=== PATIENT | female | born 1940 | race Caucasian/White ===

== ENCOUNTER 2017-03-05 10:26 | Emergency (ER) | payer MEDICARE ==
--- NOTE | 2017-03-05 12:05 | RAD ---
INDICATION: : Numbness at the right upper extremity x3 days. COMPARISON: None. TECHNIQUE: Valles scale, color Doppler, and spectral analysis was performed to evaluate the arteries of the bilateral upper extremities. REPORT: The visualized arteries are patent. The subclavian artery exhibits a flow velocity of only 15 cm/s. This increases slightly at the axillary and brachial arteries to 43 cm/s and 36 cm/s, respectively. The flow velocity in the forearm arteries measures only up to 18 cm/s and at the radial artery and 6 cm/s at the ulnar artery. IMPRESSION: Sonographic findings indicate high-grade stenosis and/or occlusion likely at the brachiocephalic trunk or possibly the proximal most portion of the right subclavian artery. Further characterization with CT angiography of the upper thorax to include the right upper extremity is advised.
[2017-03-05] MEDS ORDERED: Iodixanol* (CONTRAST) 320 MG/ML 100 ML SDV IV ONE (12:44)
[2017-03-05 13:29] LABS: ISTAT Simulator QC CORTCT PASS
[2017-03-05 13:30] LABS: GFR African American CORTCT 69.5 (>60); GFR NON-African American CCT 54.1 (>60); ISTAT Handheld CORTCT 338488; Manual Entry Verification CCT ALOW; POC Bun CORTCT 14 mg/dL (9-18)
--- NOTE | 2017-03-05 13:36 | UC ---
Upper Extremity HPI - HPI Summary HPI Summary: RIGHT ARM PAIN X 3 DAYS SUDDEN ONSET, + NUMBNESS AND TINGLING OF THE RIGHT HAND NO KNOWN INJURY PT. IS A SMOKER - History of Current Complaint Chief Complaint: UCUpperExtremity Stated Complaint: RIGHT HAND/ARM TINGLY/NUMB Time Seen by Provider: 03/05/17 11:01 Hx Obtained From: Patient Onset/Duration: Sudden Onset, Lasting Days - 3, Still Present, Worse Since - PAST 2 DAYS Severity Initially: Mild Severity Currently: Moderate Location Of Pain: Is Discrete @ - RIGHT ARM , RIGHT HAND Character: Aching Aggravating Factor(s): Lifting, Flexion, Extension, Internal/External Rotation Alleviating Factor(s): Nothing Associated Signs And Symptoms: Positive: Weakness, Numbness/Tingling. Negative : Swelling, Redness, Bruising, Fever - Allergies/Home Medications Allergies/Adverse Reactions: Allergies Allergy/AdvReac Type Severity Reaction Status Date / Time No Known Allergies Allergy Verified 03/05/17 10:52 Home Medications: Home Medications Atenolol TAB* [Tenormin TAB* 25 MG] 25 mg PO DAILY 03/05/17 [History Confirmed 03/05/17] Atorvastatin* [Lipitor*] 20 mg PO 1700 03/05/17 [History Confirmed 03/05/17] Irbesartan [Avapro] 300 mg PO DAILY 03/05/17 [History Confirmed 03/05/17] amLODIPine TAB* [Norvasc 5 mg TAB*] 10 mg PO DAILY 03/05/17 [History Confirmed 03/05/17] PMH/Surg Hx/FS Hx/Imm Hx Cardiovascular History: Hypertension, Other - PAD Other Cardiovascular History: PAD - Surgical History Surgical History: Yes Surgery Procedure, Year, and Place: carotid artery end. ganglion cyst left wrist removal. right leg stents - Family History Known Family History: Positive: Hypertension - Social History Alcohol Use: Rare Substance Use Type: None Smoking Status (MU): Light Every Day Tobacco Smoker Amount Used/How Often: 4-5 cigs per day Review of Systems Constitutional: Negative Skin: Negative Eyes: Negative ENT: Negative Respiratory: Negative Cardiovascular: Negative Is Patient Immunocompromised?: No All Other Systems Reviewed And Are Negative: Yes Physical Exam Triage Information Reviewed: Yes Appearance: Well-Appearing, No Pain Distress, Well-Nourished Vital Signs: Initial Vital Signs Temp 96.8 F 03/05/17 10:43 Pulse 81 03/05/17 10:43 Resp 16 03/05/17 10:43 BP 79/62 03/05/17 10:43 Pulse Ox 99 03/05/17 10:43 Vital Signs Reviewed: Yes Eyes: Positive: Conjunctiva Clear ENT: Positive: Normal ENT inspection, Hearing grossly normal, Pharynx normal Neck: Positive: Supple, Nontender, No Lymphadenopathy Respiratory: Positive: Chest non-tender, Lungs clear, Normal breath sounds Cardiovascular: Positive: RRR, No Murmur, Pulses Normal Neurological Exam: Normal UC Physical Exam Vital Signs On Initial Exam: Initial Vitals Temp Pulse Resp BP Pulse Ox 96.8 F 81 16 79/62 99 03/05/17 10:43 03/05/17 10:43 03/05/17 10:43 03/05/17 10:43 03/05/17 10:43 - Cardiovascular Exam Cardiovascular: RRR Pulses: Left Radial - FAINT, Right Radial - FAINT Diagnostics - Laboratory Diagnostic Studies Completed/Ordered: IMPRESSION: Sonographic findings indicate high-grade stenosis and/or occlusion likely at. ARTERIAL US RIGHT ARM : the brachiocephalic trunk or possibly the proximal most portion of the right subclavian. artery. Further characterization with CT angiography of the upper thorax to include the. right upper extremity is advised. Upper Extremity Course/Dx - Course Course Of Treatment: SEVER ARTERIAL STENOSIS BILATERAL UPPER EXT, PT. IS A SMOKER , + LUNGS NODULES, ? LUNG CA. WILL HAVE THE PT. GO TO [facility] ED FOR EVAL BY VASCULAR SURGERY. PT. WILL SIGN AMA , SHE WILL GO HOME FIRST AND WILL GO TO ED LATER TONIGHT. I DID EXPLAIN THE URGENCY OF HER SIGN AND SYMPTOMS. AND SHE COULD LOSE HER LIMBS IF SHE DOESN'T SEE THE VASCULAR SURGERY . - Differential Dx/Diagnosis Provider Diagnoses: SEVER PAD BILATERAL UPPER EXT Discharge - Discharge Plan Condition: Critical Disposition: AGAINST MEDICAL ADVICE Patient Education Materials: Peripheral Artery Disease (ED) Referrals: Madison Humphreys MD [Primary Care Provider] - Additional Instructions: PLEASE GO TO [facility]ICAL ED FOR EVAL AND TX RACHELL IMPRESSION: Sonographic findings indicate high-grade stenosis and/or occlusion likely at the brachiocephalic trunk or possibly the proximal most portion of the right subclavian artery. Further characterization with CT angiography of the upper thorax to include the right upper extremity is advised. SEVER ARTERIAL STENOSIS BILATERAL UPPER EXT, PT. IS A SMOKER , + LUNGS NODULES, ? LUNG CA WILL HAVE THE PT. [facility]GERY PT. WILL SIGN AMA , SHE WILL GO HOME FIRST AND WILL GO TO ED LATER TONIGHT. I DID EXPLAIN THE URGENCY OF HER SIGN AND SYMPTOMS AND SHE COULD LOSE HER LIMBS IF SHE DOESN'T SEE THE VASCULAR SURGERY .
[2017-03-05 14:09] VITALS: BP 97/52
--- NOTE | 2017-03-05 14:25 | RAD ---
INDICATION: Colon is, numbness and right upper extremity pain x3 days COMPARISON: Same day right upper extremity duplex ultrasound demonstrating abnormally low arterial velocities. TECHNIQUE: Axial source images were acquired following the administration of chest and right upper arm intravenously and utilizing CT angiographic technique. Coronal and sagittal reconstructed images were constructed and reviewed. FINDINGS: The thoracic aorta is normal in size and morphology. There is calcified atherosclerosis at the arch of the aorta. There is eccentric mural atherosclerosis at the proximal descending thoracic aorta but luminal patency is maintained. Similar atherosclerotic calcification as well as noncalcified atheroma seen in the upper portion of the abdominal aorta. There is mixed attenuation atherosclerosis causing high-grade stenosis at the origin of the celiac artery. There is at least moderate 50% degree stenosis at the proximal superior mesenteric artery in addition to a small dissection flap (axial image 260). There is mostly noncalcified atheroma occluding the left subclavian artery beginning at the origin and extending at least 4.5 cm (sagittal image 86 of 155). The left vertebral artery is diminutive and the atheroma appears to extend at least to the ostium of the left vertebral artery. More distally the left subclavian artery is diminutive. The left common carotid artery is patent at its proximal portion but becomes mostly occluded with noncalcified atheroma at approximately the C6 vertebral body level (axial image #1). Evaluation of the brachiocephalic artery is limited from streak artifact caused by the neighboring left subclavian vein fill with contrast. There is coarse atherosclerotic calcification but patency appears to be maintained. At the origin of the right subclavian artery (axial image 61 and sagittal image 77) there is coarse atherosclerotic calcification that appears to cause at least high-grade stenosis. More distally at the proximal portion of the subclavian artery there is a 1.6 cm focus of occlusion depicted best on the coronal plane images (image 50 of 101). Distal to this the subclavian artery, axial artery and brachial artery are diminutive but exhibit patency. There there are no filling defects in the pulmonary arteries to indicate acute pulmonary embolic disease. There are diffuse centrilobular emphysematous changes. At the right middle lobe there is an 8 mm pleural-based pulmonary nodule. At the dependent portion of the right lower lobe (axial image 50) there is a 2.5 x 3.1 cm pleural-based density. There are additional small foci of nodular pleural thickening involving mostly the dependent portion of the right lower lobe. In the lateral aspect of the right middle lobe there are faint groundglass nodules (axial image 35) measuring up to 8 mm in greatest dimension. The left lung is largely free of such nodularity. There is a mildly enlarged subcarinal lymph node measuring 2 x 3.3 cm in the axial plane and 3.5 cm in the cephalocaudal projection. Additional mediastinal lymph nodes are identified but none are pathologically enlarged. The heart is normal in size. There is no evidence of pericardial effusion. There is no evidence of aortic aneurysm or dissection. The visualized osseous structures appear normal. At the medial aspect of the right lower lobe there is a 2.6 x 3.9 cm soft tissue lesion. The liver is somewhat heterogeneous in its enhancement. The right kidney is atrophic. IMPRESSION: 1. 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 2. Partially visualized in the left common carotid artery at approximately the C6 level is partially occlusive thrombus. A tube artery appears to be partially occluded at its origin due to thrombus in the subclavian artery. The right vertebral artery is diminutive and questionably occluded at its origin with the subclavian artery. The patient is considered high risk for stroke. More complete characterization could be obtained with ultrasound of the carotid arteries. 3. There are multifocal pleural-based nodules at the right lower lobe, mediastinal lymphadenopathy as well as a suspicious 4 cm lesion in the right lobe of the liver. Suspicion exists for a hypercoagulable state secondary to malignancy. Oncologic workup is advised. 4. Additional chronic and degenerative changes noted in the body the report unlikely to be directly related to the patient's current clinical presentation. Recommendation: As was discussed with Drs. Del Angel over the telephone at approximately 1400 hours, it is advised the patient promptly be seen by an endovascular specialist (e.g. vascular surgery, interventional radiology or interventional cardiology) for potential revascularization and cessation of further emboli. I specifically recommended transfer to [facility] to be evaluated by the vascular surgeon automobile service station manager.
--- OUTSIDE RECORDS SUMMARY | 2017-03-05 17:33 | XMS REPORT ---
:1940 External Reference #:[id number] Author Organization [facility] Address [address] [place] [address] Phone [phone] Care Team Providers Name Role Phone Madison Boswell MD Care Team Information Kiln Firer Unavailable Payers Type Date Identification Numbers Payment Provider Subscriber Medicare Primary Effective: Policy Number: Medicare Mary Tolentino 2014 [id number] PayID: [id number] [address] [place] [address] [facility] Part B Effective: Policy Number: [facility] Mary Tolentino 2014 [id number] Options PayID: [id number] [address] [place] [address] Workers Compensation Onset: 2009 Policy Number: [employer] Mary Tolentino [id number] PayID: [id number] [address] [facility] [place] [address] Problems Date Description Provider Status Onset: 08/05/2012 Chronic kidney disease stage 3 Madison Boswell MD Active Onset: 06/06/2011 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 Onset: 06/06/2011 Abdominal aortic aneurysm without Madison Boswell MD Active rupture Onset: 01/31/2010 Carotid artery occlusion Madison Boswell MD Active Onset: 01/29/2009 Chronic kidney disease stage 2 Madison Boswell MD Active Onset: 01/29/2008 Peripheral vascular disease Madison Boswell MD Active Onset: 12/31/2006 Mixed hyperlipidemia Madison Boswell MD Active Onset: 12/31/2006 Atherosclerosis of renal artery Madison Boswell MD Active Onset: 12/31/2006 Tobacco user Madison Boswell MD Active Onset: 06/21/2006 Benign essential hypertension Madison Boswell MD Active Onset: 02/16/2015 Pure hypercholesterolemia Madison Boswell MD Active Family History Date Family Member(s) Problem(s) Comments Father due to Cancer () - unknown kind. 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 Cigarette Use Current Cigarette Smoker 5-10 Cigarettes Daily Cigarette Use Pack Years - 25 ETOH Use Occasionally consumes alcohol Smoking 08/21/2016 Patient is a current smoker, started age 20, 1/2 ppd, 28 smokes every day pack years as of 08/21/16 Document: 08/21/16 - Followup: Followup 6 mo Allergies, Adverse Reactions, Alerts Date Description Reaction Status Severity Comments 08/13/2014 NKDA active Medications Medication Date Status Form Strength Qnty SIG Indications Ordering Provider Amlodipine 06/19/19 Active Tablets 10mg 1/2 PO qd I10 MD Beth, Besylate 17 Alo Vitamin D3 08/17/19 Active Tablets 1000Unit 2 by E55.9 Juliann, 16 mouth MD Madison daily with dinner with meat fat oil Glucosamine 02/17/20 Active Tablets 1500/1200 OTC 1 by M15.0 Juliann Chondroitin 15 mouth MD Madison Complex Triple twice a Strength day with 16 oz water M79.643 [place] 50 08/06/2013 Active Capsules 1000mg 1 po Juliann, daily MD Madison with food Atorvastatin 08/06/2013 Active Tablets 40mg 90t 1 by E78 Juliann, Calcium abs mouth .2 MD Madison every day Acetaminophen 06/06/2011 Active Tablets 500mg 2 po Juliann, Extra Strength every 12 MD Madison hours prn Aspirin Adult Low 01/29/[address] 81mg 1 by E78 Juliann, Strength mouth .2 MD Madison every day Atenolol 08/18/2007 Active Tablets 25mg 90t 1 by I10 MD Beth, abs mouth Alo every day Irbesartan 07/20/2006 Active Tablets 300mg 1 PO qd I10 MD Beth, Alo Folic Acid Active Tablets 1mg 1 by Unknown mouth every day Ferrous Sulfate Active Tablets 325(65Fe) 1 by Unknown mg mouth every day Sulfamethoxazole/ 08/21/2016 - Hx Tablets 800-160mg 6ta 1 by R35 Juliann, Trimethoprim DS 08/24/2016 bs mouth .0 MD Madison twice a day Cephalexin 07/18/2014 - Hx Capsules 500mg 28c 1 by 682 Unknown 07/25/2014 aps mouth .0 every 6 hours Calcitriol 11/15/2012 - Hx Capsules 0.25mcg 4 po 585 Alo Pate, 08/21/2016 daily .2 Acetaminophen 06/20/2012 - Hx Capsules 500mg 1 po bid Juliann, 02/16/2015 MD Madison Immunizations CPT Code Status Date Vaccine Reaction Lot # [id number] Given 02/22/2016 Prevnar 13 Pneumococal Im inj completed, Pt [id number] Conjugate Vaccine tolerated well 08818 Given 01/03/2016 Influenza Virus Vaccine,Quadrivalent,Split,Pr eserv Free 3 Yrs+ 06685 Given 01/01/2015 Fluzone Highdose Age 65 And Over Preservative & Antibiotic Free 96983 Given 12/31/2013 Influenza Virus Vaccine,Quadrivalent,Split,Pr eserv Free 3 Yrs+ 51436 Given 01/01/2012 Afluria Or Fluvirin Flu Vac Intramuscular 07758 Given 01/05/2010 Tdap (Adacel) Ages 7 And Above Only 61836 Given 01/05/2010 Afluria Or Fluvirin Flu Vac Intramuscular 38071 Given 12/24/2008 Afluria Or Fluvirin Flu Vac Intramuscular 75425 Given 01/29/2008 Pneumococcal 23 Immunization Adult Or Immunosuppressed Patient 45741 Given 01/17/2008 Afluria Or Fluvirin Flu Vac Intramuscular Q2039 Refused 02/26/2017 Flu Vaccine NOS [id number] Refused 02/16/2015 Prevnar 13 Pneumococal Conjugate Vaccine 31373 Refused 08/13/2014 Prevnar 13 Pneumococal Conjugate Vaccine Vital Signs Date Vital Result Comment 02/26/2017 Body Temperature 97.7 F Weight 147.00 lb Heart Rate 82 /min BP Systolic 132 mmHg BP Diastolic 74 mmHg Respiratory Rate 14 /min Height 64.25 inches 5'4.25" O2 % BldC Oximetry 98 % Ra BMI (Body Mass Index) 25.0 kg/m2 08/21/2016 Weight 160.00 lb Heart Rate 74 /min BP Systolic 120 mmHg BP Diastolic 80 mmHg Respiratory Rate 18 /min Height 64.25 inches 5'4.25" BMI (Body Mass Index) 27.2 kg/m2 02/22/2016 Weight 160.12 lb Heart Rate 84 /min BP Systolic 128 mmHg BP Diastolic 70 mmHg Respiratory Rate 16 /min Height 64.25 inches 5'4.25" 02/02/16 SA BMI (Body Mass Index) 27.3 kg/m2 08/17/2015 Weight 161.00 lb Heart Rate 70 /min BP Systolic 108 mmHg LEFT Reg BP Diastolic 62 mmHg LEFT Reg Respiratory Rate 19 /min Height 64.5 inches 5'4.50" BMI (Body Mass Index) 27.2 kg/m2 02/16/2015 Weight 160.00 lb Heart Rate 74 /min BP Systolic 120 mmHg BP Diastolic 70 mmHg Respiratory Rate 18 /min Height 64.5 inches 5'4.50" BMI (Body Mass Index) 27.0 kg/m2 08/13/2014 Weight 153.00 lb Heart Rate 72 /min BP Systolic 130 mmHg BP Diastolic 80 mmHg Respiratory Rate 18 /min Height 64.5 inches 5'4.50" BMI (Body Mass Index) 25.9 kg/m2 07/27/2014 Weight 152.00 lb Heart Rate 72 /min BP Systolic 120 mmHg BP Diastolic 74 mmHg Respiratory Rate 18 /min Height 64.5 inches 5'4.50" BMI (Body Mass Index) 25.7 kg/m2 07/20/2014 Body Temperature 96.2 F Weight 152.00 lb Heart Rate 74 /min BP Systolic 112 mmHg BP Diastolic 70 mmHg Respiratory Rate 18 /min Height 64.5 inches 5'4.50" BMI (Body Mass Index) 25.7 kg/m2 02/09/2014 Weight 156.00 lb Heart Rate 72 /min BP Systolic 120 mmHg BP Diastolic 80 mmHg Respiratory Rate 18 /min Height 64.5 inches 5'4.50" 12/04/2013 Weight 149.00 lb Heart Rate 74 /min BP Systolic 124 mmHg BP Diastolic 76 mmHg Respiratory Rate 18 /min Height 64.5 inches 5'4.50" O2 % BldC Oximetry 97 % room air 09/17/2013 Weight 151.00 lb Heart Rate 72 /min BP Systolic 124 mmHg BP Diastolic 72 mmHg Respiratory Rate 18 /min Height 64.5 inches 5'4.50" 08/06/2013 Weight 153.00 lb Heart Rate 74 /min BP Systolic 120 mmHg BP Diastolic 72 mmHg Respiratory Rate 18 /min Height 64.5 inches 5'4.50" 05/28/2013 Weight 155.00 lb Heart Rate 76 /min BP Systolic 122 mmHg BP Diastolic 70 mmHg Respiratory Rate 18 /min Height 64.5 inches 5'4.50" 03/31/2013 Weight 158.00 lb Heart Rate 74 /min BP Systolic 124 mmHg BP Diastolic 78 mmHg Respiratory Rate 18 /min 03/06/2013 Weight 156.00 lb Heart Rate 76 /min BP Systolic 130 mmHg BP Diastolic 80 mmHg Respiratory Rate 18 /min 02/19/2013 Weight 158.00 lb Heart Rate 76 /min BP Systolic 114 mmHg BP Diastolic 76 mmHg Respiratory Rate 18 /min 02/05/2013 Weight 158.50 lb Heart Rate 78 /min BP Systolic 130 mmHg BP Diastolic 80 mmHg Respiratory Rate 18 /min Height 64.5 inches 5'4.50" 10/07/2012 Body Temperature 97.0 F Weight 153.00 lb Heart Rate 72 /min BP Systolic 100 mmHg BP Diastolic 60 mmHg Respiratory Rate 20 /min O2 % BldC Oximetry 95 % 08/05/2012 Weight 157.00 lb Heart Rate 72 /min BP Systolic 122 mmHg BP Diastolic 62 mmHg Respiratory Rate 18 /min 06/20/2012 Weight 157.00 lb Heart Rate 78 /min BP Systolic 118 mmHg BP Diastolic 70 mmHg Respiratory Rate 18 /min 02/05/2012 Weight 156.00 lb Heart Rate 80 /min BP Systolic 136 mmHg BP Diastolic 60 mmHg Respiratory Rate 17 /min Height 64.5 inches 5'4.50" 02/05/12 10/16/2011 Weight 161.00 lb Heart Rate 76 /min BP Systolic 110 mmHg BP Diastolic 68 mmHg Respiratory Rate 17 /min 06/06/2011 Weight 158.00 lb Heart Rate 84 /min BP Systolic 112 mmHg BP Diastolic 70 mmHg Respiratory Rate 19 /min Height 64.5 inches 5'4.50" 04/17/11 04/17/2011 Weight 156.00 lb Heart Rate 70 /min BP Systolic 124 mmHg BP Diastolic 78 mmHg Respiratory Rate 17 /min Height 64.5 inches 5'4.50" 02/20/2011 Weight 164.00 lb Heart Rate 72 /min BP Systolic 124 mmHg BP Diastolic 76 mmHg Respiratory Rate 18 /min Height 64.5 inches 5'4.50" 02/01/2011 Weight 157.00 lb Heart Rate 66 /min BP Systolic 126 mmHg BP Diastolic 78 mmHg Respiratory Rate 16 /min Height 64.5 inches 5'4.50" 01/31/2010 Weight 153.00 lb Heart Rate 72 /min BP Systolic 130 mmHg LEFT BP Diastolic 72 mmHg LEFT Respiratory Rate 16 /min Height 64.5 inches 5'4.50" 01/12/2010 Body Temperature 96.0 F Weight 153.00 lb Heart Rate 72 /min BP Systolic 112 mmHg LEFT BP Diastolic 68 mmHg LEFT Respiratory Rate 16 /min 01/05/2010 Weight 154.00 lb Heart Rate 68 /min BP Systolic 122 mmHg LEFT BP Diastolic 72 mmHg LEFT Respiratory Rate 16 /min 12/29/2009 Weight 153.00 lb Heart Rate 72 /min BP Systolic 112 mmHg LEFT BP Diastolic 62 mmHg LEFT Respiratory Rate 16 /min 01/29/2009 Weight 149.00 lb Heart Rate 74 /min BP Systolic 130 mmHg BP Diastolic 70 mmHg Respiratory Rate 16 /min Height 65 inches 5'5" 01/29/2008 Weight 149.00 lb Heart Rate 78 /min BP Systolic 128 mmHg BP Diastolic 70 mmHg Respiratory Rate 16 /min Height 65 inches 5'5" 02/15/2007 Weight 144.00 lb Heart Rate 66 /min BP Systolic 120 mmHg BP Diastolic 70 mmHg Respiratory Rate 18 /min Height 65 inches 5'5" 01/28/2007 Weight 154.00 lb Heart Rate 74 /min BP Systolic 140 mmHg BP Diastolic 80 mmHg Respiratory Rate 18 /min Height 65 inches 5'5" 12/31/2006 Weight 155.00 lb Heart Rate 68 /min BP Systolic 122 mmHg BP Diastolic 70 mmHg Respiratory Rate 20 /min Height 65 inches 5'5" 07/03/2006 Weight 139.00 lb Heart Rate 60 /min BP Systolic 154 mmHg BP Diastolic 80 mmHg Respiratory Rate 20 /min Height 65 inches 5'5" 06/26/2006 BP Systolic 190 mmHg pt anxious BP Diastolic 100 mmHg pt anxious 06/26/2006 Body Temperature 97.5 F Weight 146.00 lb Heart Rate 72 /min BP Systolic 162 mmHg BP Diastolic 110 mmHg Respiratory Rate 20 /min Height 65 inches 5'5" O2 % BldC Oximetry 97 % 06/21/2006 Body Temperature 95.5 F Weight 138.00 lb Heart Rate 68 /min BP Systolic 194 mmHg Both Arms Same Reading BP Diastolic 80 mmHg Both Arms Same Reading Respiratory Rate 20 /min Height 65 inches 5'5" Results Test Date Test Result H/L Range Note Xray 02/26/2017 Ribs, Unilateral - 2 Views, RT <pending> Spine, Thoracic, 3 Views <pending> CBC With Auto Diff 02/19/2017 WBC 11.5 K/uL High 4.1-11.0 RBC 5.22 M/uL 4.00-5.40 Hemoglobin 13.1 gm/dL 12.0-16.0 Hematocrit 40.0 % 36.0-47.0 MCV 76.7 fL Low 80.0-97.0 MCH 25.2 pg Low 27.0-32.0 MCHC 32.8 g/dL 32.0-36.0 RDW 16.5 % High 11.5-14.5 PLT Count 287 K/ul 140-400 MPV 8.4 FL 7.1-10.7 Neutrophil 62.0 % 35.0-75.0 Lymphocyte 24.0 % 16.0-52.0 Monocyte 11.6 % High 2.0-10.0 Eosinophil 1.5 % 0.0-5.0 Basophil 0.9 % 0.0-4.0 Abs Neutrophils 7.2 K/uL 2.1-8.0 Abs Lymphocytes 2.8 K/uL 0.8-5.5 Abs Monocytes 1.3 K/uL High 0.1-1.0 Abs Eosinophils 0.2 K/uL 0.0-0.5 Abs Basophils 0.1 K/uL 0.0-0.3 Comprehensive Metabolic (CMP) 02/19/2017 Sodium 140 mmol/L 135-146 1 Potassium 4.0 mmol/L 3.5-5.2 Chloride# 105 mmol/L 97-110 2 Carbon Dioxide 22 mmol/L Low 24-34 Glucose 113 mg/dL High 70-105 Creatinine 1.2 mg/dL 0.5-1.4 Calcium 9.5 mg/dL 8.5-10.2 Total Protein 7.1 g/dL 6.0-8.0 Albumin 3.7 g/dL 3.6-4.9 Globulin 3.4 g/dL 2.0-3.5 A/G Ratio 1.1 Ratio 1.0-2.2 Total Bilirubin 0.4 mg/dL 0.1-1.3 Alkaline Phosphatase 121 U/L 24-140 Alt 8 U/L 3-42 Ast 13 U/L 8-42 Ayse Egfr 54 Low >60 3 Non Ayse Egfr 45 Low >60 4 Anion Gap 13 mmol/L 7-16 5 BUN 15 mg/dL 6-26 Lipid 02/19/2017 Cholesterol 100 mg/dL 50-199 Triglycerides 90 mg/dL 30-200 HDL 30 mg/dL Low 35-85 6 Chol/ HDL Ratio 3.3 ratio Low 3.7-5.6 VLDL 18 mg/dL 2-29 LDL (Calc) 52 mg/dL 20-99 7 Laboratory test finding 02/19/2017 CPK 21 U/L 12-199 Microalb/Creat Panel 02/19/2017 Creatinine, Urine 144.3 mg/dL Microalb/Creat Urine 533.51 ug/mgCreat High 0.00-30.00 Microalbumin 769.8 ug/ml High 0.0-20.0 Laboratory test 08/21/2016 Urine Culture Microbiology res 8, 9 finding <SEE NOTE> Laboratory test 08/14/2016 Vit D,25 Hydroxy 25 ng/mL Low 31-100 finding Lipid 08/14/2016 Cholesterol 123 mg/dL 50-199 Triglycerides 143 mg/dL 30-200 HDL 35 mg/dL 35-85 10 Chol/ HDL Ratio 3.6 ratio Low 3.7-5.6 VLDL 29 mg/dL 2-29 LDL (Calc) 60 mg/dL 20-99 11 Laboratory test finding 08/14/2016 CPK 35 U/L 12-199 Comprehensive Metabolic (CMP) 08/14/2016 Sodium 141 mmol/L 135-146 12 Potassium 4.9 mmol/L 3.5-5.2 Chloride# 107 mmol/L 97-110 13 Carbon Dioxide 23 mmol/L Low 24-34 Glucose 109 mg/dL High 70-105 BUN 17 mg/dL 6-26 Creatinine 1.2 mg/dL 0.5-1.4 Calcium 9.8 mg/dL 8.5-10.2 Total Protein 7.2 g/dL 6.0-8.0 Albumin 4.1 g/dL 3.6-4.9 Globulin 3.1 g/dL 2.0-3.5 A/G Ratio 1.3 Ratio 1.0-2.2 Total Bilirubin 0.5 mg/dL 0.1-1.3 Alkaline Phosphatase 115 U/L 24-140 Alt 13 U/L 3-42 Ast 17 U/L 8-42 Ayse Egfr 52 Low >60 14 Non Ayse Egfr 43 Low >60 15 Anion Gap 16 mmol/L 7-16 16 Microalb/Creat Panel 08/14/2016 Creatinine, Urine 122.8 mg/dL Microalb/Creat Urine 533.38 ug/mgCreat High 0.00-30.00 Microalbumin 655.2 ug/ml High 0.0-20.0 Laboratory test finding 02/15/2016 Vit D,25 Hydroxy 22 ng/mL Low 31-100 Lipid 02/15/2016 Cholesterol 136 mg/dL 50-199 Triglycerides 147 mg/dL 30-200 HDL 32 mg/dL Low 35-85 17 Chol/ HDL Ratio 4.3 ratio 3.7-5.6 VLDL 29 mg/dL 2-29 LDL (Calc) 75 mg/dL 20-99 18 Laboratory test finding 02/15/2016 CPK 37 U/L 12-199 Comprehensive Metabolic (CMP) 02/15/2016 Sodium 137 mmol/L 134-142 Potassium 4.4 mmol/L 3.5-5.2 Chloride 106 mmol/L 97-109 Carbon Dioxide 23 mmol/L Low 24-34 Glucose 115 mg/dL High 70-105 BUN 22 mg/dL 6-26 Creatinine 1.4 mg/dL 0.5-1.4 Calcium 9.8 mg/dL 8.5-10.2 Total Protein 7.5 g/dL 6.0-8.0 Albumin 4.2 g/dL 3.6-4.9 Globulin 3.3 g/dL 2.0-3.5 A/G Ratio 1.3 Ratio 1.0-2.2 Total Bilirubin 0.3 mg/dL 0.1-1.3 Alkaline Phosphatase 92 U/L 24-140 Alt 14 U/L 3-42 Ast 16 U/L 8-42 Anion Gap 12 mmol/L 6-14 Ayse Egfr 45 Low >60 19 Non Ayse Egfr 37 Low >60 20 CBC With Auto Diff 02/15/2016 WBC 8.4 K/uL 4.1-11.0 RBC 5.13 M/uL 4.00-5.40 Hemoglobin 13.6 gm/dL 12.0-16.0 Hematocrit 40.7 % 36.0-47.0 MCV 79.3 fL Low 80.0-97.0 MCH 26.6 pg Low 27.0-32.0 MCHC 33.5 g/dL 32.0-36.0 RDW 15.8 % High 11.5-14.5 PLT Count 224 K/ul 140-400 Neutrophil 57.5 % 35.0-75.0 Lymphocyte 28.5 % 16.0-52.0 Monocyte 9.7 % 2.0-10.0 Eosinophil 3.0 % 0.0-5.0 Basophil 1.3 % 0.0-4.0 Abs Neutrophils 4.8 K/uL 2.1-8.0 Abs Lymphocytes 2.4 K/uL 0.8-5.5 Abs Monocytes 0.8 K/uL 0.1-1.0 Abs Eosinophils 0.2 K/uL 0.0-0.5 Abs Basophils 0.1 K/uL 0.0-0.3 Microalb/Creat Panel 02/15/2016 Creatinine, Urine 159.2 mg/dL Microalb/Creat Urine 101.92 ug/mgCreat High 0.00-30.00 Microalbumin 162.3 ug/ml High 0.0-20.0 Laboratory test finding 08/10/2015 Vit D,25 Hydroxy 24 ng/mL Low 31-100 21 Lipid 08/10/2015 Cholesterol 125 mg/dL 50-199 21 Triglycerides 142 mg/dL 30-200 21 HDL 33 mg/dL Low 35-85 21, 22 Chol/ HDL Ratio 3.8 ratio 3.7-5.6 21 VLDL 28 mg/dL 2-29 21 LDL (Calc) 64 mg/dL 20-99 21, 23 Laboratory test finding 08/10/2015 CPK 35 U/L 12-199 21 Comprehensive Metabolic (CMP) 08/10/2015 Sodium 139 mmol/L 134-142 21 Potassium 4.2 mmol/L 3.5-5.2 21 Chloride 108 mmol/L 97-109 21 Carbon Dioxide 24 mmol/L 24-34 21 Glucose 99 mg/dL 70-105 21 BUN 18 mg/dL 6-26 21 Creatinine 1.4 mg/dL 0.5-1.4 21 Calcium 9.6 mg/dL 8.5-10.2 21 Total Protein 7.1 g/dL 6.0-8.0 21 Albumin 3.8 g/dL 3.6-4.9 21 Globulin 3.3 g/dL 2.0-3.5 21 A/G Ratio 1.2 Ratio 1.0-2.2 21 Total Bilirubin 0.3 mg/dL 0.1-1.3 21 Alkaline Phosphatase 89 U/L 24-140 21 Alt 12 U/L 3-42 21 Ast 16 U/L 8-42 21 Anion Gap 11 mmol/L 6-14 21 Ayse Egfr 45 Low >60 21, 24 Non Ayse Egfr 37 Low >60 21, 25 Laboratory test finding 02/09/2015 Vit D,25 Hydroxy 34 ng/mL 31-100 26 CBC With Auto Diff 02/09/2015 WBC 7.6 K/uL 4.1-11.0 26 RBC 5.22 M/uL 4.00-5.40 26 Hemoglobin 14.0 gm/dL 12.0-16.0 26 Hematocrit 42.9 % 36.0-47.0 26 MCV 82.2 fL 80.0-97.0 26 MCH 26.9 pg Low 27.0-32.0 26 MCHC 32.7 g/dL 32.0-36.0 26 RDW 15.4 % High 11.5-14.5 26 PLT Count 232 K/ul 140-400 26 Neutrophil 63.4 % 35.0-75.0 26 Lymphocyte 23.0 % 16.0-52.0 26 Monocyte 8.9 % 2.0-10.0 26 Eosinophil 3.5 % 0.0-5.0 26 Basophil 1.2 % 0.0-4.0 26 Abs Neutrophils 4.8 K/uL 2.1-8.0 26 Abs Lymphocytes 1.7 K/uL 0.8-5.5 26 Abmon 0.7 K/uL 0.1-1.0 26 Abs Eosinophils 0.3 K/uL 0.0-0.5 26 Abs Basophils 0.1 K/uL 0.0-0.3 26 Lipid 02/09/2015 Cholesterol 132 mg/dL 50-199 26 Triglycerides 140 mg/dL 30-200 26 HDL 36 mg/dL 35-85 26, 27 Chol/ HDL Ratio 3.7 ratio 3.7-5.6 26 VLDL 28 mg/dL 2-29 26 LDL (Calc) 68 mg/dL 20-99 26, 28 Laboratory test finding 02/09/2015 CPK 46 U/L 12-199 26 Microalb/Creat Panel 02/09/2015 Creatinine, Urine 128.0 mg/dL 26 Microalb/Creat Urine 88.78 ug/mgCreat High 0.00-30.00 26 Microalbumin 113.6 ug/ml High 0.0-20.0 26 Lipid Treatment 08/06/2014 Cholesterol 116 mg/dL 50-199 29 Triglycerides 67 mg/dL 30-200 29 HDL 38 mg/dL 35-85 29, 30 Chol/ HDL Ratio 3.1 ratio Low 3.7-5.6 29 VLDL 13 mg/dL 2-29 29 LDL (Calc) 65 mg/dL 20-99 29, 31 Alt 13 U/L 3-42 29 Ast 18 U/L 8-42 29 Basic (BMP) 08/06/2014 Sodium 139 mmol/L 134-142 29 Potassium 4.4 mmol/L 3.5-5.2 29 Chloride 107 mmol/L 97-109 29 Carbon Dioxide 26 mmol/L 24-34 29 Glucose 113 mg/dL High 70-105 29 BUN 23 mg/dL 6-26 29 Creatinine 1.4 mg/dL 0.5-1.4 29 Calcium 9.8 mg/dL 8.5-10.2 29 Anion Gap 10 mmol/L 6-14 29 Non Ayse Egfr 38 Low >60 29, 32 Ayse Egfr 45 Low >60 29, 33 Laboratory test finding 08/06/2014 Vit D,25 Hydroxy 36 ng/mL 31-100 29 Comprehensive Metabolic Panel 07/18/2014 Glucose 104 mg/dL 74-106 BUN 15 mg/dL 7-18 Creatinine 1.3 mg/dL 0.6-1.3 Glom Filtration Rate, Estimate 43 mL/min >60 If 52 mL/min >60 34 BUN/Creat 11.5 ratio Sodium 136 mmol/L 136-145 Potassium 4.5 mmol/L 3.5-5.1 Chloride 103 mmol/L 98-107 Carbon Dioxide 26 mmol/L 21-32 Anion Gap 7 mEq/L Low 8-16 Calcium 9.7 mg/dL 8.5-10.1 Total Protein 8.3 g/dL High 6.4-8.2 Albumin 3.9 g/dL 3.4-5.0 Globulin 4.4 g/dL High 1.9-4.3 Alb/Glob 0.9 ratio Bilirubin,Total 0.6 mg/dL 0.2-1.0 Sgot/Ast 27 U/L 15-37 SGPT/Alt 19 U/L 12-78 Alkaline Phosphatase 114 U/L 45-117 CBC 07/18/2014 White Blood Count 9.8 K/uL 3.1-10.7 Red Blood Count 5.43 M/uL High 3.90-5.40 Hemoglobin 15.0 gm/dL 11.6-15.8 Hematocrit 45.0 % 36.0-46.1 Mean Cell Volume 82.9 fl 80.9-99.0 Mean Corpuscular HGB 27.6 pg 25.9-32.7 Mean Corpuscular HGB Conc 33.3 g/dL 30.8-34.3 Platelet Count 217 K/uL 155-360 Red Cell Distri Width %CV 14.5 % High 11.7-14.4 Mean Platelet Volume 10.9 fL 8.9-12.4 Laboratory test finding 02/02/2014 % Baso. 2.1 % High 0.0-2.0 % Eos. 4.5 % High 0.0-4.0 % Lymph 31 % 20-44 % [place] 9.8 % 2.0-10.0 % Meg 53 % 50-70 Absolute Baso. 0.1 K/ul 0.0-0.3 Absolute Eos. 0.3 K/ul 0.0-0.5 Absolute Lymph. 2.2 K/ul 0.8-4.8 Absolute [place]. 0.7 K/ul 0.1-1.0 Absolute Meg. 3.75 K/ul 2.05-7.63 Alt 11.0 U/L 9.0-52.0 Ast 21.0 U/L 14.0-36.0 BUN 17.0 mg/dL 7.0-18.0 BUN/Creat Ratio 13.1 ratio 12.0-20.0 Calcium 10.2 mg/dL 8.7-10.5 Chloride 108.0 mmol/L High 98.0-107.0 Co2 22.0 mmol/L 22.0-30.0 Creatinine-Serum 1.3 mg/dL High 0.7-1.2 Glucose 102.0 mg/dL 75.0-110.0 HCT 47.6 % 37.0-51.0 HGB 16.1 Gm/dl High 12.0-16.0 MCH 28.7 pg 26.0-32.0 MCHC 33.9 g/dL 31.0-36.0 MCV 84.6 Fl 80.0-97.0 MPV 8.1 fL 6.0-10.0 PLT 239 K/ul 140-440 Potasium 4.6 mmol/L 3.6-5.0 RBC 5.6 M/ul 4.2-6.3 RDW 13.1 % 11.5-14.5 Sodium 141.0 mmil/L 137.0-145.0 Vitamin D 28.3 ng/mL Low 30.0-100.0 WBC 7.1 K/ul 4.1-10.9 eGFR 42.9 Lipid Panel 02/02/2014 Chol/HDL Ratio 3.8 ratio Cholesterol 144.0 mg/dL 50.0-199.0 HDL 38.0 mg/dL 29.0-86.0 LDL, Calculated 76.6 mg/dL 20.0-129.0 Triglycerides 147.0 mg/dL 30.0-249.0 vLDL 29.4 ng/dL Urine Microalbumin/Creat 02/02/2014 Microalb/Creat Ratio 99.7 ug/ngcrt High 0.0-30.0 Urine Creatinine 151.1 mg/dL Urine Microalbumin 150.7 mg/L High <18.5 Laboratory test finding 12/04/2013 % Baso. 0.8 % 0.0-2.0 % Eos. 3.1 % 0.0-4.0 % Lymph 25 % 20-44 % [place] 8.0 % 2.0-10.0 % Meg 63 % 50-70 A/G Ratio 1.2 ratio Low 1.6-2.2 Absolute Baso. 0.1 K/ul 0.0-0.3 Absolute Eos. 0.3 K/ul 0.0-0.5 Absolute Lymph. 2.0 K/ul 0.8-4.8 Absolute [place]. 0.6 K/ul 0.1-1.0 Absolute Meg. 5.08 K/ul 2.05-7.63 Albumin 4.3 g/dL 3.5-5.0 Alk. Phos. 86.0 U/L 30.0-126.0 Alt 14.0 U/L 9.0-52.0 Anion Gap 12.0 mmol/L 10.0-20.0 Ast 23.0 U/L 14.0-36.0 BUN 17.0 mg/dL 7.0-18.0 BUN/Creat Ratio 13.1 ratio 12.0-20.0 Calcium 9.8 mg/dL 8.7-10.5 Chloride 108.0 mmol/L High 98.0-107.0 Co2 19.0 mmol/L Low 22.0-30.0 Creatinine-Serum 1.3 mg/dL High 0.7-1.2 Globulin 3.6 g/dL 2.7-4.3 Glucose 102.0 mg/dL 75.0-110.0 HCT 44.0 % 37.0-51.0 HGB 14.5 Gm/dl 12.0-16.0 MCH 28.4 pg 26.0-32.0 MCHC 32.9 g/dL 31.0-36.0 MCV 86.2 Fl 80.0-97.0 MPV 7.4 fL 6.0-10.0 PLT 238 K/ul 140-440 Potasium 4.9 mmol/L 3.6-5.0 RBC 5.1 M/ul 4.2-6.3 RDW 12.6 % 11.5-14.5 Sodium 139.0 mmil/L 137.0-145.0 Total Bilirubin 0.4 mg/dL 0.2-1.3 Total Protein 7.9 g/dL 6.3-8.2 WBC 8.1 K/ul 4.1-10.9 eGFR 46.2 mi/minper1.73 35 Act Partial Thrombo Time 27.3 s 23.9-34.3 36 Protime 12/04/2013 Inr 0.9 0.9-1.1 37 Protime 12.3 s 12.1-14.9 Laboratory test finding 09/10/2013 Alt 15.0 U/L 9.0-52.0 Ast 23.0 U/L 14.0-36.0 ck 50.0 26.0-190.0 Lipid Panel 09/10/2013 Chol/HDL Ratio 3.8 ratio Cholesterol 128.0 mg/dL 50.0-199.0 HDL 34.0 mg/dL 29.0-86.0 LDL, Calculated 76.0 mg/dL 20.0-129.0 Triglycerides 90.0 mg/dL 30.0-249.0 vLDL 18.0 ng/dL Laboratory test finding 07/31/2013 % Baso. 1.3 % 0.0-2.0 % Eos. 3.1 % 0.0-4.0 % Lymph 23 % 20-44 % [place] 10.4 % High 2.0-10.0 % Meg 62 % 50-70 Absolute Baso. 0.1 K/ul 0.0-0.3 Absolute Eos. 0.3 K/ul 0.0-0.5 Absolute Lymph. 2.0 K/ul 0.8-4.8 Absolute [place]. 0.9 K/ul 0.1-1.0 Absolute Meg. 5.23 K/ul 2.05-7.63 Alt 16.0 U/L 9.0-52.0 Ast 19.0 U/L 14.0-36.0 BUN 22.0 mg/dL High 7.0-18.0 BUN/Creat Ratio 15.7 ratio 12.0-20.0 Calcium 9.6 mg/dL 8.7-10.5 Chloride 108.0 mmol/L High 98.0-107.0 Co2 22.0 mmol/L 22.0-30.0 Creatinine-Serum 1.4 mg/dL High 0.7-1.2 Glucose 104.0 mg/dL 75.0-110.0 HCT 44.7 % 37.0-51.0 HGB 14.8 Gm/dl 12.0-16.0 MCH 28.7 pg 26.0-32.0 MCHC 33.2 g/dL 31.0-36.0 MCV 86.4 Fl 80.0-97.0 MPV 7.0 fL 6.0-10.0 PLT 244 K/ul 140-440 Potasium 4.6 mmol/L 3.6-5.0 RBC 5.2 M/ul 4.2-6.3 RDW 14.3 % 11.5-14.5 Sodium 141.0 mmil/L 137.0-145.0 Vitamin D 24.2 ng/mL Low 30.0-100.0 WBC 8.5 K/ul 4.1-10.9 eGFR 39.4 Lipid Panel 07/31/2013 Chol/HDL Ratio 4.4 ratio Cholesterol 151.0 mg/dL 50.0-199.0 HDL 34.0 mg/dL 29.0-86.0 LDL, Calculated 86.0 mg/dL 20.0-129.0 Triglycerides 155.0 mg/dL 30.0-249.0 vLDL 31.0 ng/dL Laboratory test finding 07/31/2013 Ferritin 42.9 ng/mL 3-105 38 Serum Iron 72 g/dL 25-156 39 Laboratory test finding 05/21/2013 Bas% 0.6 % 0.0-1.1 Baso # 0.05 K/uL 0.0-0.1 Eo% 2.2 % 0.0-6.6 Eos # 0.18 K/uL 0.0-0.5 Ferritin 19.6 ng/mL 3-105 40 Folic Acid 62.4 ng/mL High 6.0-15.4 41 Hematocrit 40.1 % 36.0-46.1 Hemoglobin 13.1 gm/dL 11.6-15.8 Lymph # 2.88 K/uL 0.8-3.4 Lymph % 35.9 % 17.0-46.1 Mean Cell Volume 81.8 fl 80.9-99.0 Mean Corpuscular HGB 26.7 pg 25.9-32.7 Mean Corpuscular HGB Conc 32.7 g/dL 30.8-34.3 Mean Platelet Volume 10.8 fL 8.9-12.4 [place] # 1.12 K/uL High 0.3-0.9 [place] % 14.0 % High 4.3-13.2 Neut# 3.79 K/uL 1.0-7.0 Neut% 47.3 % 40.4-72.8 Platelet Count 211 K/uL 155-360 Red Blood Count 4.90 M/uL 3.90-5.40 Red Cell Distri Width %CV 21.9 % High 11.7-14.4 Red Cell Distri Width SD 63.9 fl High 3-47 Serum Iron 35 g/dL 25-156 42 White Blood Count 8.0 K/uL 3.1-10.7 Laboratory test finding 03/21/2013 Bas% 0.9 % 0.0-1.1 Baso # 0.06 K/uL 0.0-0.1 Eo% 3.8 % 0.0-6.6 Eos # 0.25 K/uL 0.0-0.5 Hematocrit 37.9 % 36.0-46.1 Hemoglobin 11.9 gm/dL 11.6-15.8 Lymph # 2.65 K/uL 0.8-3.4 Lymph % 40.5 % 17.0-46.1 Mean Cell Volume 76.7 fl Low 80.9-99.0 Mean Corpuscular HGB 24.1 pg Low 25.9-32.7 Mean Corpuscular HGB Conc 31.4 g/dL 30.8-34.3 Mean Platelet Volume 10.6 fL 8.9-12.4 [place] # 0.90 K/uL 0.3-0.9 [place] % 13.7 % High 4.3-13.2 Neut# 2.69 K/uL 1.0-7.0 Neut% 41.1 % 40.4-72.8 Platelet Count 276 K/uL 155-360 Red Blood Count 4.94 M/uL 3.90-5.40 Red Cell Distri Width %CV 26.2 % High 11.7-14.4 Red Cell Distri Width SD 68.6 fl High 3-47 White Blood Count 6.6 K/uL 3.1-10.7 Laboratory test finding 02/05/2013 % Baso. 1.7 % 0.0-2.0 % Eos. 2.8 % 0.0-4.0 % Lymph 32 % 20-44 % [place] 9.1 % 2.0-10.0 % Meg 55 % 50-70 Absolute Baso. 0.1 K/ul 0.0-0.3 Absolute Eos. 0.2 K/ul 0.0-0.5 Absolute Lymph. 2.1 K/ul 0.8-4.8 Absolute [place]. 0.6 K/ul 0.1-1.0 Absolute Meg. 3.65 K/ul 2.05-7.63 Erythropoietin (Epo), Serum 129.1 mIU/mL High 2.6-18.5 43 Ferritin 6.4 ng/mL 3-105 Folate 9.3 ng/mL 6.0-15.4 HCT 36.5 % Low 37.0-51.0 HGB 10.1 Gm/dl Low 12.0-16.0 MCH 20.4 pg Low 26.0-32.0 MCHC 27.7 g/dL Low 31.0-36.0 MCV 73.5 Fl Low 80.0-97.0 MPV 8.0 fL 6.0-10.0 PLT 291 K/ul 140-440 RBC 5.0 M/ul 4.2-6.3 RDW 16.2 % High 11.5-14.5 Serum Iron 17 g/dL Low 25-156 Total Iron Binding Capacity 544 g/dL High 245-419 Transferrin %Saturation 3 % Low 12-57 Vitamin B12 442.0 pg/mL 200.0-900.0 WBC 6.7 K/ul 4.1-10.9 Stool For Occult Blood (Abdulkadir) neg Laboratory test finding 01/29/2013 % Baso. 1.7 % 0.0-2.0 % Eos. 4.3 % High 0.0-4.0 % Lymph 31 % 20-44 % [place] 10.4 % High 2.0-10.0 % Meg 52 % 50-70 Absolute Baso. 0.1 K/ul 0.0-0.3 Absolute Eos. 0.3 K/ul 0.0-0.5 Absolute Lymph. 2.2 K/ul 0.8-4.8 Absolute [place]. 0.7 K/ul 0.1-1.0 Absolute Meg. 3.63 K/ul 2.05-7.63 Alt 16.0 U/L 9.0-52.0 Ast 23.0 U/L 14.0-36.0 BUN 24.0 mg/dL High 7.0-18.0 BUN/Creat Ratio 17.1 ratio 12.0-20.0 Calcium 9.9 mg/dL 8.7-10.5 Chloride 107.0 mmol/L 98.0-107.0 Co2 23.0 mmol/L 22.0-30.0 Creatinine-Serum 1.4 mg/dL High 0.7-1.2 Glucose 97.0 mg/dL 75.0-110.0 HCT 36.8 % Low 37.0-51.0 HGB 10.4 Gm/dl Low 12.0-16.0 MCH 20.8 pg Low 26.0-32.0 MCHC 28.1 g/dL Low 31.0-36.0 MCV 73.9 Fl Low 80.0-97.0 MPV 7.4 fL 6.0-10.0 PLT 280 K/ul 140-440 Potasium 4.9 mmol/L 3.6-5.0 RBC 5.0 M/ul 4.2-6.3 RDW 16.1 % High 11.5-14.5 Sodium 140.0 mmil/L 137.0-145.0 WBC 7.0 K/ul 4.1-10.9 eGFR 39.5 Lipid Panel 01/29/2013 Chol/HDL Ratio 3.5 ratio Cholesterol 125.0 mg/dL 50.0-199.0 HDL 36.0 mg/dL 29.0-86.0 LDL, Calculated 66.4 mg/dL 20.0-129.0 Triglycerides 113.0 mg/dL 30.0-249.0 vLDL 22.6 ng/dL Urine Microalbumin/Creat 01/29/2013 Microalb/Creat Ratio 40.4 ug/ngcrt High 0.0-30.0 Urine Creatinine 99.0 mg/dL Urine Microalbumin 40.0 mg/L High <18.5 Laboratory test finding 07/29/2012 % Baso. 2.8 % High 0.0-2.0 % Eos. 4.3 % High 0.0-4.0 % Lymph 30 % 20-44 % [place] 11.7 % High 2.0-10.0 % Meg 52 % 50-70 Absolute Baso. 0.2 K/ul 0.0-0.3 Absolute Eos. 0.2 K/ul 0.0-0.5 Absolute Lymph. 1.7 K/ul 0.8-4.8 Absolute [place]. 0.7 K/ul 0.1-1.0 Absolute Meg. 2.89 K/ul 2.05-7.63 Alt 16.0 U/L 9.0-52.0 Ast 19.0 U/L 14.0-36.0 BUN 20.0 mg/dL High 7.0-18.0 BUN/Creat Ratio 15.4 ratio 12.0-20.0 Calcium 9.5 mg/dL 8.7-10.5 Chloride 109.0 mmol/L High 98.0-107.0 Co2 21.0 mmol/L Low 22.0-30.0 Creatinine-Serum 1.3 mg/dL High 0.7-1.2 Glucose 96.0 mg/dL 75.0-110.0 HCT 37.3 % 37.0-51.0 HGB 11.2 Gm/dl Low 12.0-16.0 MCH 21.3 pg Low 26.0-32.0 MCHC 29.9 g/dL Low 31.0-36.0 MCV 71.1 Fl Low 80.0-97.0 MPV 7.1 fL 6.0-10.0 PLT 279 K/ul 140-440 Potasium 4.4 mmol/L 3.6-5.0 RBC 5.2 M/ul 4.2-6.3 RDW 16.4 % High 11.5-14.5 Sodium 142.0 mmil/L 137.0-145.0 WBC 5.6 K/ul 4.1-10.9 eGFR 43.0 Alkaline Phosphatase Isoenzyme 07/29/2012 Bone Fraction 32 % 11-68 Intestinal Fraction 9 % 0-16 44 Liver Fraction 59 % 26-86 Phosphatase,alkaline 100 IU/L 25-165 Lipid Panel 07/29/2012 Chol/HDL Ratio 3.9 ratio Cholesterol 135.0 mg/dL 50.0-199.0 HDL 35.0 mg/dL 29.0-86.0 LDL, Calculated 74.6 mg/dL 20.0-129.0 Triglycerides 127.0 mg/dL 30.0-249.0 vLDL 25.4 ng/dL Laboratory test finding 06/26/2012 BUN 21.0 mg/dL High 7.0-18.0 BUN/Creat Ratio 15.0 ratio 12.0-20.0 Calcium 9.8 mg/dL 8.7-10.5 Chloride 106.0 mmol/L 98.0-107.0 Co2 21.0 mmol/L Low 22.0-30.0 Creatinine-Serum 1.4 mg/dL High 0.7-1.2 Glucose 122.0 mg/dL High 75.0-110.0 Potasium 4.8 mmol/L 3.6-5.0 Sodium 138.0 mmil/L 137.0-145.0 eGFR 39.5 Laboratory test finding 01/25/2012 Alkaline Phosphatase 139 U/L High 30- 126 45 Alt 22 U/L 9-52 45 Anion Gap 21 mmol/L High 10-20 45 Ast 29 U/L 14-36 45 BUN 18 mg/dL 7-18 45 BUN/CR Ratio 13.5 Ratio 12-20 45 CK 58 U/L 26-190 45, 46 Calcium 9.3 mg/dL 8.7-10.5 45 Carbon Dioxide 22 mmol/L 22-30 45 Chloride 105 mmol/L 98-107 45 Creatinine, Serum 1.3 mg/dL High 0.7-1.2 45 Gamma Glutamyl Transpeptidase 20 U/L 8-35 45, 47 Glucose 96 mg/dL 65-105 45 Potassium 4.7 mmol/L 3.6-5.0 45 Sodium 142 mmol/L 137-145 45 Alkaline Phosphatase Isoenzyme 01/25/2012 Bone Fraction 49 % 11-68 45 Intestinal Fraction 0 % 0-16 45, 48 Liver Fraction 51 % 26-86 45 Phosphatase,alkaline 123 IU/L 25-165 45 Lipid Panel 01/25/2012 Chol/HDL Ratio 3.3 45, 49 Cholesterol 136 mg/dL 50-199 45 HDL Cholesterol 41 mg/dL 29-86 45 LDL 64 mg/dL 20-129 45 Triglycerides 153 mg/dL 30-249 45 VLDL Cholesterol 31 mg/dL 45 Laboratory test finding 09/27/2011 Alkaline Phosphatase 140 U/L High 30- 126 50 Alt 21 U/L 9-52 50 Anion Gap 15 mmol/L 10-20 50 Ast 25 U/L 14-36 50 BUN 18 mg/dL 7-18 50 BUN/CR Ratio 16.0 Ratio 12-20 50 Calcium 9.4 mg/dL 8.7-10.5 50 Carbon Dioxide 23 mmol/L 22-30 50 Chloride 107 mmol/L 98-107 50 Creatinine, Serum 1.1 mg/dL 0.7-1.2 50 Glucose 98 mg/dL 65-105 50 Potassium 4.4 mmol/L 3.6-5.0 50 Sodium 140 mmol/L 137-145 50 Lipid Panel 09/27/2011 Chol/HDL Ratio 3.3 50, 51 Cholesterol 129 mg/dL 50-199 50 HDL Cholesterol 39 mg/dL 29-86 50 LDL 60 mg/dL 20-129 50 Triglycerides 152 mg/dL 30-249 50 VLDL Cholesterol 30 mg/dL 50 Laboratory test finding 09/27/2011 CK 46 U/L 26-190 50, 52 Phosphorous 4.0 mg/dL 2.4-4.7 50, 53 Laboratory test finding 02/01/2009 Cytology Pap ok 54 Laboratory test finding 01/29/2008 Cytology Pap ok 55 Laboratory test finding 02/26/2007 Stool Occult #1 Negative 56 Stool Occult #2 Negative 56 Stool Occult #3 Negative 56 Laboratory test finding 12/31/2006 Cytology Pap normal 57 Alkaline Phosphatase Isoenzyme 06/22/2006 Alkaline Phosphatase 136 IU/L 25-165 Bone Fraction 32 % 11-68 Intestinal Fraction 0 % 0-16 Liver Fraction 68 % 26-86 Lipid Panel 06/21/2006 Chol/HDL Ratio 4.0 58, 59 Cholesterol 192 mg/dL 50-199 58 HDL Cholesterol 47 mg/dL 29-86 58 LDL 124 mg/dL 20-129 58 Triglycerides 103 mg/dL 30-249 58 VLDL Cholesterol 21 mg/dL 58 Hepatic Function 06/21/2006 Albumin 3.5 g/dL 3.5-5.0 58 Alkaline Phosphatase 152 U/L High 38-126 58 Alt 41 U/L 9-52 58 Ast 35 U/L 14-36 58 Total Bilirubin 0.3 mg/dL 0.2-1.3 58 Total Protein 6.4 g/dL 6.3-8.2 58 Laboratory test finding 06/21/2006 Microalbumin,Urine 272.2 mg/L High 0.0- 15.0 58 Microalbumin/Creatinine Ratio 1088.8 ug/mgCrt High 0.0-30.0 58 Urine Creatinine Conc 25 mg/dL 58 Absolute Basophils 0.07 K/ul 0.0-0.3 58 Absolute Eosinophils 0.15 K/ul 0.0-0.5 58 Absolute Lymphocytes 2.73 K/ul 0.8-4.8 58 Absolute Monocytes 0.76 K/ul 0.1-1.0 58 Absolute Neutrophils 5.91 K/ul 2.05-7.63 58 Anion Gap 14 mmol/L 10-20 58 BUN 42 mg/dL High 7-18 58 BUN/CR Ratio 23.1 Ratio High 12-20 58 Basophil 0.7 % 0-2 58 Calcium 9.3 mg/dL 8.7-10.5 58 Carbon Dioxide 33 mmol/L High 22-30 58 Chloride 97 mmol/L Low 98-107 58 Creatinine, Serum 1.8 mg/dL High 0.7-1.2 58 Eosinophil 1.6 % 0-4 58 Free T4 0.99 ng/dL 0.75-1.54 58 Glucose 98 mg/dL 65-105 58 Hematocrit 37.7 % 37.0-51.0 58 Hemoglobin 12.8 GM/dl 12.0-16.0 58 Lymphocytes 28.4 % 20-44 58 MCH 27.1 pg 26.0-32.0 58 MCHC 34.0 g/dL 31.0-36.0 58 MCV 80 FL 80-97 58 Monocytes 7.9 % 2-10.0 58 Neutrophils 61.4 % 50-70 58 Platelet Count 280 K/ul 140-440 58 Potassium 4.4 mmol/L 3.6-5.0 58 RBC 4.73 M/ul 4.2-6.3 58 RDW 13.1 % 11.5-14.5 58 Sodium 139 mmol/L 137-145 58 TSH 1.709 uIU/ml 0.50-6.00 58 WBC 9.6 K/ul 4.1-10.9 58 1 Updated reference range on new analyzer 2 Updated reference range on new analyzer 3 Concerning GFR Guidelines for Americans: Normal function or mild renal disease, if clinically at risk: >/=60 mL/min Moderately decreased: 30-59 Severely decreased: 15-29 Renal failure: <15 4 Concerning GFR Guidelines: Normal function or mild renal disease, if clinically at risk: >/=60 mL/min Moderately decreased: 30-59 Severely decreased: 15-29 Renal failure: <15 Glomerular Filtration Rate (GFR) is estimated based on the MDRD equation, which assumes a steady state for creatinine as recommended by the National Kidney Disease Education Program in conjunction with the National Institutes of Health and the National Kidney Foundation. Clinical conditions in which it may be necessary to measure GFR by using clearance methods include extremes of age and body size, severe malnutrition or obesity, diseases of skeletal muscle, paraplegia or quadriplegia, vegetarian diet, rapidly changing kidney function, and calculation of the dose of potentially toxic drugs that are excreted by the kidneys. 5 Updated reference range on new analyzer 6 Per NCEP ATP III Guidelines: Results lower than 40 mg/dL are suggestive of increased risk for coronary artery disease. Results > or=to 60 mg/dL are considered a negative risk factor. 7 Per NCEP ATP III Guidelines: Normal Population <130 Patients with medical conditions: CHD/DM Optimal: <100 Borderline high: 130-159 High: 160-189 Very high: >189 8 treating 9 Microbiology results SOURCE Clean Catch Midstream FINAL RESULT Mixed urogenital jin consistent with contamination. Request fresh specimen if indicated. 10 Per NCEP ATP III Guidelines: Results lower than 40 mg/dL are suggestive of increased risk for coronary artery disease. Results > or=to 60 mg/dL are considered a negative risk factor. 11 Per NCEP ATP III Guidelines: Normal Population <130 Patients with medical conditions: CHD/DM Optimal: <100 Borderline high: 130-159 High: 160-189 Very high: >189 12 Updated reference range on new analyzer 13 Updated reference range on new analyzer 14 Concerning GFR Guidelines for Americans: Normal function or mild renal disease, if clinically at risk: >/=60 mL/min Moderately decreased: 30-59 Severely decreased: 15-29 Renal failure: <15 15 Concerning GFR Guidelines: Normal function or mild renal disease, if clinically at risk: >/=60 mL/min Moderately decreased: 30-59 Severely decreased: 15-29 Renal failure: <15 Glomerular Filtration Rate (GFR) is estimated based on the MDRD equation, which assumes a steady state for creatinine as recommended by the National Kidney Disease Education Program in conjunction with the National Institutes of Health and the National Kidney Foundation. Clinical conditions in which it may be necessary to measure GFR by using clearance methods include extremes of age and body size, severe malnutrition or obesity, diseases of skeletal muscle, paraplegia or quadriplegia, vegetarian diet, rapidly changing kidney function, and calculation of the dose of potentially toxic drugs that are excreted by the kidneys. 16 Updated reference range on new 17 Per NCEP ATP III Guidelines: Results lower than 40 mg/dL are suggestive of increased risk for coronary artery disease. Results > or=to 60 mg/dL are considered a negative risk factor. 18 Per NCEP ATP III Guidelines: Normal Population <130 Patients with medical conditions: CHD/DM Optimal: <100 Borderline high: 130-159 High: 160-189 Very high: >189 19 Concerning GFR Guidelines for Americans: Normal function or mild renal disease, if clinically at risk: >/=60 mL/min Moderately decreased: 30-59 Severely decreased: 15-29 Renal failure: <15 20 Concerning GFR Guidelines: Normal function or mild renal disease, if clinically at risk: >/=60 mL/min Moderately decreased: 30-59 Severely decreased: 15-29 Renal failure: <15 Glomerular Filtration Rate (GFR) is estimated based on the MDRD equation, which assumes a steady state for creatinine as recommended by the National Kidney Disease Education Program in conjunction with the National Institutes of Health and the National Kidney Foundation. Clinical conditions in which it may be necessary to measure GFR by using clearance methods include extremes of age and body size, severe malnutrition or obesity, diseases of skeletal muscle, paraplegia or quadriplegia, vegetarian diet, rapidly changing kidney function, and calculation of the dose of potentially toxic drugs that are excreted by the kidneys. 21 This sample is drawn by:[facility] pt verified labels and initialed test tubes 22 Per NCEP ATP III Guidelines: Results lower than 40 mg/dL are suggestive of increased risk for coronary artery disease. Results > or=to 60 mg/dL are considered a negative risk factor. 23 Per NCEP ATP III Guidelines: Normal Population <130 Patients with medical conditions: CHD/DM Optimal: <100 Borderline high: 130-159 High: 160-189 Very high: >189 24 Concerning GFR Guidelines for Americans: Normal function or mild renal disease, if clinically at risk: >/=60 mL/min Moderately decreased: 30-59 Severely decreased: 15-29 Renal failure: <15 25 Concerning GFR Guidelines: Normal function or mild renal disease, if clinically at risk: >/=60 mL/min Moderately decreased: 30-59 Severely decreased: 15-29 Renal failure: <15 Glomerular Filtration Rate (GFR) is estimated based on the MDRD equation, which assumes a steady state for creatinine as recommended by the National Kidney Disease Education Program in conjunction with the National Institutes of Health and the National Kidney Foundation. Clinical conditions in which it may be necessary to measure GFR by using clearance methods include extremes of age and body size, severe malnutrition or obesity, diseases of skeletal muscle, paraplegia or quadriplegia, vegetarian diet, rapidly changing kidney function, and calculation of the dose of potentially toxic drugs that are excreted by the kidneys. 26 Fastin hours 27 Per NCEP ATP III Guidelines: Results lower than 40 mg/dL are suggestive of increased risk for coronary artery disease. Results > or=to 60 mg/dL are considered a negative risk factor. 28 Per NCEP ATP III Guidelines: Normal Population <130 Patients with medical conditions: CHD/DM Optimal: <100 Borderline high: 130-159 High: 160-189 Very high: >189 29 fax [phone] phone [phone] Dr. Pate Fax/CC: 30 Per NCEP ATP III Guidelines: Results lower than 40 mg/dL are suggestive of increased risk for coronary artery disease. Results > or=to 60 mg/dL are considered a negative risk factor. 31 Per NCEP ATP III Guidelines: Normal Population <130 Patients with medical conditions: CHD/DM Optimal: <100 Borderline high: 130-159 High: 160-189 Very high: >189 32 Concerning GFR Guidelines: Normal function or mild renal disease, if clinically at risk: >/=60 mL/min Moderately decreased: 30-59 Severely decreased: 15-29 Renal failure: <15 Glomerular Filtration Rate (GFR) is estimated based on the MDRD equation, which assumes a steady state for creatinine as recommended by the National Kidney Disease Education Program in conjunction with the National Institutes of Health and the National Kidney Foundation. Clinical conditions in which it may be necessary to measure GFR by using clearance methods include extremes of age and body size, severe malnutrition or obesity, diseases of skeletal muscle, paraplegia or quadriplegia, vegetarian diet, rapidly changing kidney function, and calculation of the dose of potentially toxic drugs that are excreted by the kidneys. 33 Concerning GFR Guidelines for Americans: Normal function or mild renal disease, if clinically at risk: >/=60 mL/min Moderately decreased: 30-59 Severely decreased: 15-29 Renal failure: <15 34 Note: Persistent reduction for 3 months or more in an eGFR <60 mL/min/1.73 m2 defines CKD. Patients with eGFR values >/=60 mL/min/1.73 m2 may also have CKD if evidence of persistent proteinuria is present. The original MDRD equation for estimated GFR is not valid for patients less than 18 years of age. Additional information may be found at www.kdoqi.org. 35 For -Faroese patients multiply result by 1.180 36 preop labs, send to dr katja elliott, orthopedic hand surgeon QUERY: Anticoagulant Therapy? N QUERY: Date of Last Dose: QUERY: Time of Last Dose: 37 THERAPEUTIC INR RANGE: 2.0 - 3.0 DVT, Pulmonary embolus, prophylaxis against venous thrombosis or systemic embolization in high risk patients. 2.5 - 3.5 Mechanical heart valves [address] pate's fasting priro to visit [address] pate's fasting priro to visit QUERY: Is the Patient Fasting? Y 40 in 3 mo, ov to fu 41 Result confirmed by repeat analysis. 42 in 3 mo, ov to fu QUERY: Is the Patient Fasting? N 43 Please note reference interval change Rebaselining will be available January 20, 2013 until July 30, 2013 by using order code [id number]. Performed at: [facility] [id number] Production Planner Scheduler: Alisa Hayes MD, Phone: [phone] Performed at: [facility] [id number] Production Planner Scheduler: Alisa Hayes MD, Phone: [phone] Performed at: [address] [id number] Production Planner Scheduler: Horacio Jacobo MD, Phone: [phone] [address] pate's group, Dr walker fasting prior to visit 04/2012 [address] pate's group, Dr walker fasting prior to visit 04/2012 REPORT FAXED PER REQUEST- 01/25/12,(LAB.EMM1) [address] pate's group, Dr walker fasting prior to visit 04/2012 REPORT FAXED PER REQUEST- 01/25/12,(LAB.EMM1) 48 Performed at: [facility] [id number] Production Planner Scheduler: Alisa Hayes MD, Phone: [phone] Performed at: [facility] [id number] Production Planner Scheduler: Horacio Jacobo MD, Phone: [phone] 49 Normal Range: Male: <4.98 Female: <4.45 50 FASTING FAXcc to Evgeny Bush fasting prior to visit 10/2011 ORDER MAILED TO PT 51 Normal Range: Male: <4.98 Female: <4.45 52 REPORT FAXED PER REQUEST- 09/27/11,(LAB.CBL) FASTING FAXcc to Evgeny Bush fasting prior to visit FAXED PER REQUEST - @ 1436 09/27/11,(LAB.LAS) ORDER MAILED TO PT 53 REPORT FAXED PER REQUEST- 09/27/11,(LAB.CBL) FASTING FAXcc to Evgeny Bush fasting prior to visit FAXED PER REQUEST - @ 1436 09/27/11,(LAB.LAS) ORDER MAILED TO PT 54 Cytology [id number] [facility], [address] [place] [address] CYTOLOGY REPORT Name: Mary Tolentino Accession # : [id number] : 1940 (Age: 68) Sex: F Location: [facility] Soc. Sec. #: [id number] Date Collected: 02/01/2009 Billing #: [id number] Date Received: 02/01/2009 Requisition # [id number] Physician(s): MADISON BOSWELL MD Source of Specimen: ENDOCERVICAL/ECTOCERVICAL THIN PREP Clinical Information: Date of Last Menstrual Period: None Provided Specimen Adequacy: SATISFACTORY FOR EVALUATION. ADEQUATE ENDOCERVICAL/TRANSFORMATION ZONE. General Categorization : NEGATIVE FOR INTRAEPITHELIAL LESION OR MALIGNANCY. lgs Electronic Signature ANISH Freire (ASCP) Reported: 02/03/2009 Cytology [facility] ICD-9 Code(s) V72.31 55 Cytology [id number] [facility], [address] [place] [address] CYTOLOGY REPORT Name: Mary Tolentino Accession # : [id number] : 1940 (Age: 67) Sex: F Location: [facility] Soc. Sec. #: [id number] Date Collected: 01/29/2008 Billing #: [id number] Date Received: 01/30/2008 Requisition # [id number] Physician(s): MADISON BOSWELL MD Source of Specimen: ENDOCERVICAL/ECTOCERVICAL THIN PREP Clinical Information: Date of Last Menstrual Period: None Provided Menstrual History:Post menopausal: years ago Specimen Adequacy: SATISFACTORY FOR EVALUATION. ADEQUATE ENDOCERVICAL/TRANSFORMATION ZONE. General Categorization: NEGATIVE FOR INTRAEPITHELIAL LESION OR MALIGNANCY. kortney Electronic Signature ANISH Marion (ASCP) Reported: 02/04/2008 Cytology [facility] ICD-9 Code(s) V72.31 V15.89 56 stool cards given 57 Cytology [id number] [facility], [address] [place] [address] CYTOLOGY REPORT Name: Mary Tolentino Accession # : [id number] : 1940 (Age: 66) Sex: F Location: [facility] Soc. Sec. #: [id number] Date Collected: 12/31/2006 Billing #: [id number] Date Received: 01/01/2007 Physician(s): MADISON BOSWELL MD Source of Specimen: ENDOCERVICAL/ECTOCERVICAL THIN PREP Clinical Information: Date of Last Menstrual Period: None Provided Menstrual History:Post menopausal: Years ago Specimen Adequacy: SATISFACTORY FOR EVALUATION. ADEQUATE ENDOCERVICAL/TRANSFORMATION ZONE. General Categorization: NEGATIVE FOR INTRAEPITHELIAL LESION OR MALIGNANCY. cf Electronic Signature Ezio Suh MD Reported: 01/04/2007 Also seen by: Nita Monsalve, ANISH (ASCP) Cytology [facility] ICD-9 Code(s) V72.31 58 FASTING coffee with cream and sugar today, drawlabs today 59 Normal Range: Male: <4.98 Female: <4.45 Procedures Date CPT Code Description Status Comment 02/26/2017 81890 Measure Blood Oxygen Level Completed Single Determination 02/26/2017 56689 X-Ray Spine Thoracic Completed Ap/Lateral/Cervicothoracic Junction, 3 Views 02/26/2017 21810 X-Ray Ribs Unilateral Two Veiws Completed 02/22/2016 72472 X-Ray Shoulder Complete Completed 03/16/2015 Mammogram Completed 02/09/2014 84725 Mammography Unilateral Completed 12/04/2013 41983 Measure Blood Oxygen Level Completed Single Determination 12/04/2013 11425 Electrocardiogram Complete Completed 06/17/2013 Colonoscopy Completed 02/09/[address] cespedes, normal but for divertic, next? 06/17/2013 73367 Colonoscopy Flexible Diagnostic Completed 04/08/2013 37530 ECHO Transthoracis 2D W Completed Spectral Doppler 03/06/201354106 Aspiration &/Or Inj Of Completed Ganglion Cyst(S) Any Location 02/05/2013 29611 Mammography Unilateral Completed 10/14/2012 89149 Measure Blood Oxygen Level Completed Single Determination 10/11/2011 41682 Mammography Unilateral Completed 03/20/2011 02296 Mammography Unilateral Completed 02/20/201183725 Aspiration &/Or Inj Of Completed Ganglion Cyst(S) Any Location 01/31/2010 59003 Visual Screening Test Completed 08/29/2007 44072 Mammography Unilateral Completed 01/23/2007 96621 Mammography Unilateral Completed 01/11/2007 52083 Mammography Unilateral Completed Encounters Type Date Location Provider CPT E/M Dx Office Visit 08/21/2016 8:30a [facility] [place] [address] R35.0 I10 E78.2 I65.23 I71.4 N18.3 I70.1 M15.0 F17.210 Office Visit 02/22/2016 11:00a Madison Garcia MD G0439 Z00.00 M79.621 Z23 I10 E78.2 I65.23 I71.4 N18.3 I70.1 M15.0 F17.210 Z12.31 Z12.11 E55.9 Office Visit 08/17/2015 10:15a [facility] [place] [address] I10 E78.2 N18.3 E55.9 I71.4 I65.23 F17.210 I70.1 M15.0 Office Visit 02/16/2015 9:30a [facility] Madison Boswell MD G0439 Z00.01 M79.643 E78.2 I65.23 N18.3 I71.4 M15.0 Z12.31 Z12.11 F17.210 Office Visit 08/13/2014 10:30a [facility] [place] [address] 401.1 272.2 440.1 585.2 433.10 441.4 715.00 V76.12 V82.81 305.1 Office Visit 07/27/2014 3:15p [place] [address] 682.0 Office Visit 07/20/2014 10:00a [facility] [place] [address] 682.0 Plan of Care Future Appointment(s):02/28/2017 11:45 am - Schedule, Xray at [facility]08/21/2017 7: 55 am - Schedule, Laboratory at [facility]08/28/2017 8:30 am - Madison Boswell MD at [facility]02/26/2017 - Madison Boswell, MDR07.1 Chest pain on breathingNew Orders: Physical TherapyComments:right rib pain, radiates to back, so check rib and back films, referral to PT, seek care if getting worse. brief episodes of chest pain sounds musculoskeletalseek care if episodes are severe, last longer than seconds, come on with exercise or extreme emotion, cause other symptoms ie palpitations or dizziness or shortness of breath or abd painFollow up:Happy Birthday soon! xrays today; mammo; referral to rehab physician; next visit 6mo fasting labs 5 days mrdsoZ52.00 Encntr for general adult medical exam w/o abnormal findingsComments: medicare physicalMedicare wellness form reviewed, no concerns. Depression screen:upon review of signs and symptoms with exam assessment pt does not appear depressed.Functional capacity and daily living skills: upon review of signs and symptoms through direct questioning, pt appears stable and adequately safe to continue in her current living situation.Screening for breast cancer: as notedScreening for plant hr manager cancers ( cervical, vaginal, vulvar): asnoted Screening for colon cancer: as notedPneumovax up to date.prevnar 13 today Tetanus booster tdap 2010Consider Hep A series for travelzostavax done Annual flu vax recommended doneHealth care proxy recommended to be completed, pt needs to bringin Recommend periodic optho and dental care. Recommend tobacco avoidance Recommend limit alcohol to < 1 per day for womenHealthy lifestyle recommendations. Encouraged healthy diet with meats simply prepared, fresh fruits and veg when able also simply prepared , whole grains, 3 dairies per day non fat. Please consume a healthy omega-3 fat with each meal such as nuts, olive oil, avocado, fish. Encouraged dailyexercise 30 - 60 min daily/150min per week. Encouraged at least 2 qrts water per day with more for sweaty exercise. Target 7-8 hours of sleep at night. Work on your "happy factors", meaning hobbies and things you do day to day. Engaging in a health lifestyle may decrease your risk for illnesses and may improve your quality of lifeI10 Essential (primary) hypertensionNew Labs: CBC With Auto DiffComprehensive Metabolic (CMP)Comments:Htn--BPs appear stable and in good control, reminded goal of BP < 140/90 ideally. Continue current meds. Encouraged diet modified in fat and no added salt. Limit alcohol to < 1 per day. Encouraged regular exercise of 30 min most days per week. Encouraged pt to continue to monitor BP and call if > 140/90 on a regular basis. Please call if you feel your blood pressure is under 110 systolic and/or causing you symptoms such as dizzines, lightheadedness, or other concerns.E78.2 Mixed hyperlipidemiaNew Labs:LipidCPKComments:high cholpatient is high risk per atp IV guidelines and assessment LDL shows a 30-50% reductioncontinue current meds. monitor for side effects of muscle aches or crampswe watch for liver effects with labsPlease call if you have any concerns.Enteric coated aspirin 81mg daily is also recommended. For lifestyle, we also recommend: Low fat ( under 30gm per day), low chol diet ( under 300mg per day chol)focus on lean meat, nonfat 1% dairy, increased veg and fruit, whole grains weight lossexercise build to at least 30min per day. Reviewed signs and symptoms of cardiovascualr disease.N18.3 Chronic kidney disease, stage 3 (moderate)Comments:chronic renal disease. bp in good range, still with protein in urine, continue meds, tight control of bp, good hydration , ongoing renal f/u with Dr Bocanegra65.23 Occlusion and stenosis of bilateral carotid arteriesComments:carotid artery diseasecontinue current medical therapy and consult care with Dr Zee smoking recommendations [id number] Abdominal aortic aneurysm, without ruptureComments:target bp at least < 130/80, better if lower than 120 sys. target ldl chol < 100, lower is better.cont surgical follow up periodically dr thompson [id number] Atherosclerosis of renal arteryComments:Renal artery stenosiscontinue careful blood pressure managementurged smoking cessationcomanaged with dr pateM15.0 Primary generalized (osteo)arthritisComments:ostoarthritiscontinues on glucosamine and fish oil continues exercise sF17.210 Nicotine dependence, cigarettes, uncomplicatedComments:pt continues to smoke, is holding at 7 cig per dayis not ready for quitting at this timeis aware of risks for cardiovascular, lung, and cancer illnesses We have discussed medications to help with this.please call if you need assistance with cessation Advised there is a lung cancer screening program at [facility] It's a chest ct protocol, Meant for patients who are current smokers or have quit in the last 15 yrs, have more than 30 pack years of smoking, age 55-79. Call them if interested. [phone] or ask for a referral I don't think she is eligible as she has smoked 1/2 ppdsince age 20, about 50 years. about 22pack [id number] Encntr screen mammogram for malignant neoplasm of breastNew Xrays:Mammogram, Screening Bilateral MammogramComments:Annual mammogram and clinical breast exam with monthly breast self exams discussed. Pt should call/come in if she has any changes in breast self exam or concerns. .For women age 75 and older who want to treat breast cancer and are expected to live another 10 years to consider continuing breast cancerscreening if you would treat cancer if found. At risk pts should do annually or as directed by specialist recommendations. Currently I am recommending pts do what they feel they should, and that most in this risk category do an annual mammogram and clinical breast exam. If you want to treat breast cancer, then do annual screening. Discussed the new recommendations for breast ultrasound for very dense breasts as an additional test for screening. She asks for every other yearmammogram and will do clinical breast exam.Z12.11 Encounter for screening for malignant neoplasm of colonComments:Colon cancer screening. last [id number] with dr rubina murray. next in 10 years if at all Recommend annual KIRA . Pt has done the colonoscopy previously. The idea is to identify cancer early or to identify and remove polyps before they can grow and become cancer. call for changes in bowel habits or blood in stool or any concerns. Keep in mind colonoscopy can miss polyps, so seek care if symptoms occur.
== END 2017-03-05 14:12 | disposition left against medical advice (07) ==
LOC: UCCORT 10:26
DX: I73.9 Peripheral vascular disease, unspecified (principal); R91.1 Solitary pulmonary nodule; I10 Essential (primary) hypertension; F17.210 Nicotine dependence, cigarettes, uncomplicated
CPT/HCPCS: 36415; 71275; 99202; G0463; Q9967